=== PATIENT | female | born 1990 | race Caucasian/White ===

== ENCOUNTER 2017-02-13 19:37 | Emergency (ER) | payer OTHER ==
[~2017-02-13] VITALS: Ht 154.9 cm; Wt 63.9 kg
[~2017-02-13 19:37] MED LIST: DOCUSATE SODIU100 MG PO; DOXYCYCLINE HY100 M3 PO; ENDOCET 5-3251 EACH PO; FLAGYL500 MG PO; FOLIC ACID1 MG PO; IBUPROFEN800 MG PO; KEPPRA500 MG PO; LAMICTAL200 MG PO; LAMOTRIGINE200 MG PO; LOESTRIN FE 1.1 EACH PO; MICROGESTIN FE1 EACH PO; MOTRIN800 MG PO; PEN-VEE K,VEET500 MG PO; PERCOCET 5/31 TABLET PO; PRENATAL TABLE1 EAC3 PO; SENNA8.6 MG PO; VITAMIN B12-FO1 EACH PO; ZOLOFT25 MG PO
[2017-02-13 19:49] VITALS: BP 130/71
[2017-02-13] MEDS ORDERED: LO LOESTRIN FE1 EACH PO (21:00)
[2017-02-13] MEDS ORDERED: PROZAC40 MG PO (21:01)
== END 2017-02-13 23:37 | disposition home or self-care (01) ==
LOC: EME 19:37
DX: S05.02XA Injury of conjunctiva and corneal abrasion without foreign body, left eye, initial encounter (principal); X58.XXXA Exposure to other specified factors, initial encounter; Z87.891 Personal history of nicotine dependence
CPT/HCPCS: 99281; 99284

== ENCOUNTER 2018-02-15 11:10 | Outpatient (CLI) | payer OTHER ==
[~2018-02-15] VITALS: Ht 154.9 cm; Wt 61.8 kg
[~2018-02-15 11:10] MED LIST changes: +LO LOESTRIN FE1 EACH PO; +PROZAC40 MG PO
[2018-02-15 11:33] VITALS: BP 98/58
[2018-02-15 12:01] LABS: ALBUMIN 3.2 g/dL (3.2-4.8); CHLORIDE 102 mEq/L (99-109); POTASSIUM 3.6 mEq/L (3.7-5.4)
[2018-02-15 12:02] LABS: SODIUM 137 mEq/L (136-147)
[2018-02-15 12:04] LABS: GLUCOSE 101 mg/dL (70-99); TOTAL PROTEIN 6.6 g/dL (6.4-8.3)
[2018-02-15 12:06] LABS: TOTAL BILIRUBIN 0.8 mg/dL (0.0-1.0)
[2018-02-15 12:07] LABS: ALKALINE PHOSPHATASE 176 IU/L (3-129); CREATININE 0.6 mg/dL (0.6-1.3); GFR ESTIMATE (CALCULATED) > 59 mL/min/
[2018-02-15 12:09] LABS: AST (GOT) 21 IU/L (2-34); UREA NITROGEN (BUN) 9 mg/dL (9-23)
[2018-02-15 12:10] LABS: ALT (GPT) 19 IU/L (3-49)
[2018-02-15 13:01] VITALS: BP 95/53
[2018-02-15 14:03] VITALS: BP 99/50
[2018-02-15 15:31] VITALS: BP 91/50
[2018-02-15 16:26] LABS: BENZODIAZEPINES, URINE SCREEN Negative (200 ng/mL)
[2018-02-15] MEDS ORDERED: KEPPRA750 MG PO (16:57)
[2018-02-15 19:11] VITALS: BP 100/55
[2018-02-15 22:57] VITALS: BP 98/55
[2018-02-16 02:12] VITALS: BP 99/55
[2018-02-16 10:11] VITALS: BP 98/54
== END 2018-02-16 15:55 | disposition home or self-care (01) ==
LOC: LDRP-OP 11:10 → 2WEST 11:11 → LDRP-OP 04-25 13:57
PROVIDERS: Advanced Practice Midwife
DX: O21.9 Vomiting of pregnancy, unspecified (principal); O99.283 Endocrine, nutritional and metabolic diseases complicating pregnancy, third trimester; E87.6 Hypokalemia; O99.353 Diseases of the nervous system complicating pregnancy, third trimester; G40.909 Epilepsy, unspecified, not intractable, without status epilepticus; O99.343 Other mental disorders complicating pregnancy, third trimester; F32.9 Major depressive disorder, single episode, unspecified; Z3A.34 34 weeks gestation of pregnancy
CPT/HCPCS: 59025; 76818; 80053; 80306 90; G0378; J0702; J2405; J7120

== ENCOUNTER 2018-02-21 19:26 | Outpatient (CLI) | payer OTHER ==
[~2018-02-21] VITALS: Ht 154.9 cm; Wt 60.5 kg
[~2018-02-21 19:26] MED LIST changes: +KEPPRA750 MG PO
[2018-02-21 19:48] VITALS: BP 112/59
[2018-02-21] MEDS ORDERED: LAMICTAL200 MG PO (20:02)
[2018-02-21] MEDS ORDERED: PRENATAL TABLE1 EAC3 PO (20:05)
[2018-02-21] MEDS ORDERED: ALLERGY RELIEF25 MG PO (20:06)
[2018-02-21 21:35] LABS: APPEARANCE CLOUDY ((CLEAR)); BILIRUBIN NEGATIVE; BLOOD NEGATIVE; COLOR YELLOW ((YELLOW)); GLUCOSE (STRIP) NEGATIVE; KETONES NEGATIVE; LEUKOCYTES NEGATIVE; NITRITE NEGATIVE; PROTEIN (STRIP) NEGATIVE; SPECIFIC GRAVITY 1.017 (1.000-1.030)
[2018-02-21 21:50] VITALS: BP 110/74
[2018-02-21 22:17] LABS: AMORPHOUS URATES CRYSTALS 2+; BACTERIA 1+ /HPF; EPITHELIAL CELLS RARE /HPF; MUCUS NONE SEEN /LPF; RED BLOOD CELLS NONE SEEN /HPF (0-5); UCUL ADDED? NO; WHITE BLOOD CELLS 0-5 /HPF (0-5)
[2018-02-21 23:37] VITALS: BP 110/52
[2018-02-22 00:26] LABS: AMPHETAMINE NEGATIVE (500 ng/mL); COCAINE NEGATIVE (150 ng/mL); METHAMPHETAMINE NEGATIVE (500 ng/mL); OPIATES (MORPHINE) NEGATIVE (100 ng/mL); PHENCYCLIDINE NEGATIVE (25 ng/mL); THC CANNABINOIDS NEGATIVE (50 ng/mL); TRICYCLIC ANTIDEPRESSANTS NEGATIVE (300 ng/mL)
[2018-02-22 00:27] LABS: BARBITURATES NEGATIVE (200 ng/mL); BENZODIAZEPINES PRESUMPTIVE POSITIVE (150 ng/mL); BUPRENORPHINE NEGATIVE (10 ng/mL); METHADONE NEGATIVE (200 ng/mL); OXYCODONE NEGATIVE (100 ng/mL); PROPOXYPHENE NEGATIVE (300 ng/mL)
[2018-02-22 05:06] LABS: BENZODIAZEPINES, URINE SCREEN Negative (200 ng/mL)
[2018-02-22 20:45] LABS: CANDIDA DNA PROBE NEGATIVE; GARDNERELLA DNA PROBE NEGATIVE; TRICHOMONAS DNA PROBE NEGATIVE
== END 2018-02-22 02:10 | disposition home or self-care (01) ==
LOC: LDRP-OP 19:26 → 2WEST 19:28 → LDRP-OP 04-25 16:02
PROVIDERS: Advanced Practice Midwife
DX: O60.03 Preterm labor without delivery, third trimester (principal); O99.343 Other mental disorders complicating pregnancy, third trimester; F32.9 Major depressive disorder, single episode, unspecified; O99.353 Diseases of the nervous system complicating pregnancy, third trimester; G40.909 Epilepsy, unspecified, not intractable, without status epilepticus; Z87.891 Personal history of nicotine dependence; O99.283 Endocrine, nutritional and metabolic diseases complicating pregnancy, third trimester; E87.6 Hypokalemia; Z3A.35 35 weeks gestation of pregnancy
CPT/HCPCS: 59025; 81003; 84999; 87081; 87086; 87480; 87510; 87660; G0378; J3105; J7120

== ENCOUNTER 2018-02-23 20:25 | Inpatient (IN) | payer OTHER ==
[~2018-02-23] VITALS: Ht 154.9 cm; Wt 59.5 kg
[~2018-02-23 20:25] MED LIST changes: +ALLERGY RELIEF25 MG PO
[2018-02-23 20:36] VITALS: BP 115/62
[2018-02-23 21:34] VITALS: BP 122/80
[2018-02-23 21:42] LABS: BASOPHIL (%) 0.1 % (0-1); EOSINOPHIL (%) 0.1 % (0-5); HEMATOCRIT 32.3 % (36.0-46.0); HEMOGLOBIN 10.9 G/DL (11.9-15.5); IMMATURE GRANULOCYTE (%) 0.7 % (0.0-0.7); LYMPHOCYTE (%) 5.6 % (15-42); LYMPHOCYTE COUNT 1.2 K/uL (1.0-2.8); MCH 29.6 PG (29.0-34.0); MCHC 33.7 G/DL (30.0-36.0); MCV 87.8 FL (83-99); MONOCYTE (%) 7.8 % (3-12); MONOCYTE COUNT 1.7 K/uL (0-0.8); NEUTROPHIL (%) 85.7 % (45-76); NEUTROPHIL COUNT 18.3 K/uL (1.8-6.4); PLATELET COUNT 283 K/uL (156-360); RBC DIS.WIDTH-CV 13.3 % (11.8-14.6); RBC DIS.WIDTH-SD 42.6 % (39-53); RED BLOOD COUNT 3.68 M/uL (3.80-5.20); WHITE BLOOD COUNT 21.4 K/uL (4.1-10.2)
[2018-02-23 22:52] LABS: BASE EXCESS -7.8 mEq/L (-3 to +3); CARBOXY HGB 0 % (0-5); METHEMOGLOBIN 2.1 % (0-1.5); PCO2 79 mm Hg (35-45); PO2 < 30 mm Hg (80-100); SITE CORD BLOOD GAS
[2018-02-23 22:53] LABS: pH 7.09 (7.35-7.45)
[2018-02-24] VITALS (9 sets, daily range): BP systolic 97–113; BP diastolic 57–69
[2018-02-24 02:02] LABS: AMPHETAMINE NEGATIVE (500 ng/mL); BARBITURATES NEGATIVE (200 ng/mL); BENZODIAZEPINES PRESUMPTIVE POSITIVE (150 ng/mL); BUPRENORPHINE NEGATIVE (10 ng/mL); COCAINE NEGATIVE (150 ng/mL); METHADONE NEGATIVE (200 ng/mL); METHAMPHETAMINE NEGATIVE (500 ng/mL); OPIATES (MORPHINE) PRESUMPTIVE POSITIVE (100 ng/mL); OXYCODONE NEGATIVE (100 ng/mL); PHENCYCLIDINE NEGATIVE (25 ng/mL); PROPOXYPHENE NEGATIVE (300 ng/mL); THC CANNABINOIDS NEGATIVE (50 ng/mL); TRICYCLIC ANTIDEPRESSANTS NEGATIVE (300 ng/mL)
[2018-02-24 02:28] LABS: BENZODIAZEPINES, URINE SCREEN Negative (200 ng/mL)
[2018-02-24 06:02] LABS: BASOPHIL (%) 0.2 % (0-1); EOSINOPHIL (%) 0 % (0-5); IMMATURE GRANULOCYTE (%) 0.5 % (0.0-0.7); LYMPHOCYTE (%) 5.6 % (15-42); LYMPHOCYTE COUNT 1.3 K/uL (1.0-2.8); MCH 29.2 PG (29.0-34.0); MCHC 33.3 G/DL (30.0-36.0); MCV 87.5 FL (83-99); MONOCYTE (%) 6.9 % (3-12); MONOCYTE COUNT 1.6 K/uL (0-0.8); NEUTROPHIL (%) 86.8 % (45-76); NEUTROPHIL COUNT 20.6 K/uL (1.8-6.4); PLATELET COUNT 298 K/uL (156-360); RBC DIS.WIDTH-CV 13.4 % (11.8-14.6); RBC DIS.WIDTH-SD 42.5 % (39-53); RED BLOOD COUNT 3.43 M/uL (3.80-5.20); WHITE BLOOD COUNT 23.8 K/uL (4.1-10.2)
[2018-02-24] MEDS ORDERED: PROZAC20 MG PO (18:19)
[2018-02-25 19:21] VITALS: BP 107/69
[2018-02-25 22:52] VITALS: BP 111/72
[2018-02-26 07:11] VITALS: BP 119/76
[2018-02-26 16:06] VITALS: BP 121/76
[2018-02-26] MEDS ORDERED: FERROUS SULFAT325 MG PO (17:50)
[2018-02-26] MEDS ORDERED: ENDOCET 5-3251 EACH PO (17:50)
[2018-02-26] MEDS ORDERED: IBUPROFEN800 MG PO (17:50)
== END 2018-02-26 19:00 | disposition home or self-care (01) | DRG 765 ==
LOC: LDRP-OP 20:25 → 2WEST 20:26 → LDRP-OP 04-25 02:24
PROVIDERS: Advanced Practice Midwife; Obstetrics & Gynecology
PROC: 10D00Z1 Extraction of Products of Conception, Low, Open Approach (ICD-10-PCS; principal; 2018-02-23)
DX: O60.14X0 Preterm labor third trimester with preterm delivery third trimester, not applicable or unspecified (principal); O99.344 Other mental disorders complicating childbirth; F32.9 Major depressive disorder, single episode, unspecified; Z3A.35 35 weeks gestation of pregnancy; Z37.0 Single live birth; G40.909 Epilepsy, unspecified, not intractable, without status epilepticus; D72.829 Elevated white blood cell count, unspecified; O45.93 Premature separation of placenta, unspecified, third trimester; O99.354 Diseases of the nervous system complicating childbirth; O99.280 Endocrine, nutritional and metabolic diseases complicating pregnancy, unspecified trimester; E87.6 Hypokalemia
CPT/HCPCS: 36600; 82803; 84999; 85025; 86850; 86900; 86901; 88307; J0330; J0690; J1170; J2274; J2590; J2765; J2795; J7120

== ENCOUNTER 2018-05-21 15:06 | Emergency (ER) | payer OTHER ==
[~2018-05-21] VITALS: Ht 167.6 cm; Wt 65.4 kg
[~2018-05-21 15:06] MED LIST changes: +FERROUS SULFAT325 MG PO; +PROZAC20 MG PO
[2018-05-21 18:20] VITALS: BP 122/66
== END 2018-05-21 18:20 | disposition home or self-care (01) ==
LOC: EME 15:06
DX: S61.212A Laceration without foreign body of right middle finger without damage to nail, initial encounter (principal); S61.210A Laceration without foreign body of right index finger without damage to nail, initial encounter; W45.8XXA Other foreign body or object entering through skin, initial encounter; Y93.G1 Activity, food preparation and clean up; Z23 Encounter for immunization
CPT/HCPCS: 73130; 99281; 99284; S0020